=== PATIENT | male | born 1985 | race American Indian/Alaskan Native ===

== ENCOUNTER 2021-07-08 09:10 | Emergency (ER) | payer SELFPAY ==
[2021-07-08] MEDS ORDERED: ASPIRIN 325 MG TAB PO ONE (10:05)
--- NOTE | 2021-07-08 10:57 | XRay Report ---
CHEST 2 VIEWS INDICATION: Chest Pain. COMPARISON: None FINDINGS: Support devices: None. Heart: Within normal limits. Lungs/pleura: There is poor inspiration. No acute air space or interstitial disease. No pneumothorax . Additional findings: None. IMPRESSION: No acute findings. Signer Name: Dez Marcano Jr, MD Signed: 07/08/2021 10:48 AM Workstation Name: [id number]
[2021-07-08 12:38] LABS: Basophils # (Auto) 0.1 K/mm3 (0.0-0.1); Basophils % (Auto) 2.9 % (0.0-1.8); Eosinophils % (Auto) 0.3 % (0.0-4.3); Hematocrit 47.2 % (35.5-45.6); Lymphocytes # (Auto) 1.1 K/mm3 (1.2-5.4); Lymphocytes % (Auto) 26.9 % (13.4-35.0); Mean Corpuscular HGB Conc 34 % (32-34); Mean Corpuscular Volume 85 fl (84-94); Monocytes # (Auto) 0.4 K/mm3 (0.0-0.8); Monocytes % (Auto) 10.5 % (0.0-7.3); Platelet Count 169 K/mm3 (140-440); Red Blood Count 5.56 M/mm3 (3.65-5.03)
[2021-07-08 12:50] LABS: Alanine Aminotransferase 128 units/L (7-56); Albumin 4.2 g/dL (3.9-5); BUN/Creatinine Ratio 9; Blood Urea Nitrogen 10 mg/dL (9-20); Calcium 9.6 mg/dL (8.4-10.2); Hemolysis Index 8
--- NOTE | 2021-07-08 13:42 | Emergency Department Report ---
ED Chest Pain [facility] - General Chief Complaint: Chest Pain Stated Complaint: SOB Time Seen by Provider: 07/08/21 12:56 Source: patient Mode of arrival: Ambulatory Limitations: No Limitations - History of Present Illness Initial Comments: 36 year old male presents to ED with complaints of Chest pain, SOB, cough and +COVID 19. Patient states that for the past 4 days he has been having right- sided chest pain which he described as a heaviness in the chest and has been constant for the past 2 days with associated shortness of breath, productive cough and wheezing. Patient states that he did vomit once 3 days ago but has not had any more nausea or vomiting since. He denies any diarrhea. He denies any abdominal pain. He states that has been feeling generally weak. He denies any LE swelling or calf pain. He states that he did found out he was Covid positive yesterday. He did not have a COVID-19 vaccine. He denies any significant past medical history. He denies any tobacco use or illicit drug use. MD Complaint: chest pain, other (SOB, cough) -: Gradual, days(s) (4) - Related Data Previous Rx's Medication Instructions Recorded Last Taken Type Azithromycin [Zithromax Z-KIERA] 250 mg PO DAILY #1 pack 07/08/21 Unknown Rx Ibuprofen [Motrin] 800 mg PO Q8HR PRN #30 tablet 07/08/21 Unknown Rx predniSONE [Deltasone] 50 mg PO QDAY #5 tab 07/08/21 Unknown Rx Allergies Allergy/AdvReac Type Severity Reaction Status Date / Time No Known Allergies Allergy Unverified 07/08/21 10:05 Heart Score - HEART Score History: Slightly suspicious EKG: Normal Age: < 45 Risk factors: 1-2 risk factors Troponin: < normal limit HEART Score: 1 - EKG Read Time Time EKG Completed: 10:15 EKG Read Time: 10:15 ED Review of Systems ROS: Stated complaint: SOB Other details as noted in HPI ED Past Medical Hx - Medications Home Medications: Home Medications Medication Instructions Recorded Confirmed Last Taken Type Azithromycin [Zithromax Z-KIERA] 250 mg PO DAILY #1 pack 07/08/21 Unknown Rx Ibuprofen [Motrin] 800 mg PO Q8HR PRN #30 tablet 07/08/21 Unknown Rx predniSONE [Deltasone] 50 mg PO QDAY #5 tab 07/08/21 Unknown Rx ED Physical Exam - General Limitations: No Limitations General appearance: alert, in no apparent distress, other (mildly ill appearing ) - Head Head exam: Present: atraumatic, normocephalic, normal inspection - Eye Eye exam: Present: normal appearance, PERRL, EOMI Pupils: Present: normal accommodation - Neck Neck exam: Present: normal inspection, full ROM. Absent: meningismus - Respiratory Respiratory exam: Present: normal lung sounds bilaterally. Absent: respiratory distress, wheezes, rales, rhonchi - Cardiovascular Cardiovascular Exam: Present: regular rate, normal rhythm, normal heart sounds - GI/Abdominal GI/Abdominal exam: Present: soft. Absent: distended, tenderness, guarding, rebound - Extremities Exam Extremities exam: Present: normal inspection, full ROM, normal capillary refill. Absent: pedal edema, calf tenderness - Neurological Exam Neurological exam: Present: alert, oriented X3, CN II-XII intact, normal gait - Psychiatric Psychiatric exam: Present: normal affect, normal mood ED Course Vital Signs 07/08/21 07/08/21 10:20 16:05 Temperature 99.1 F 99.7 F H Pulse Rate 101 H 102 H Respiratory 20 Rate Blood Pressure 138/104 133/95 O2 Sat by Pulse 96 97 Oximetry ED Medical Decision Making - Lab Data Result diagrams: 07/08/21 12:14 07/08/21 12:14 - EKG Data EKG shows normal: sinus rhythm Rate: normal No standard instances P Waves: LAE - Radiology Data Radiology results: report reviewed Patient: DALE LAWRENCE MR#: [id number] [birth year] : 1985 Acct:[id number] Age/Sex: 36 / M ADM Date: 07/08/21 Loc: ED Attending Dr: Ordering Physician: ED MD GREYSON Date of Service: 07/08/21 Procedure(s): XR chest routine 2V Accession Number(s): [id number] cc: ED MD GREYSON Fluoro Time In Minutes: CHEST 2 VIEWS INDICATION: Chest Pain. COMPARISON: None FINDINGS: Support devices: None. Heart: Within normal limits. Lungs/pleura: There is poor inspiration. No acute air space or interstitial disease. No pneumothorax. Additional findings: None. IMPRESSION: No acute findings. Signer Name: Dez Marcano Jr, MD Signed: 07/08/2021 10:48 AM Workstation Name: [id number] Transcribed By: ELVIRA Dictated By: DEZ MARCANO JR, MD Electronically Authenticated By: EDZ MARCANO JR, MD Signed Date/Time: 07/08/21 1048 DD/ 1048 TD/TT: Patient: DALE LAWRENCE MR#: [id number] [birth year] : 1985 Acct:[id number] Age/Sex: 36 / M ADM Date: 07/08/21 Loc: ED Attending Dr: Ordering Physician: ARMEN WEATHERS Date of Service: 07/08/21 Procedure(s): CT angio chest Accession Number(s): [id number] cc: ARMEN WEATHERS CTA CHEST WITH CONTRAST INDICATION / CLINICAL INFORMATION: SHORTNESS OF BREATH/CP OMNI 350 100 ML. TECHNIQUE: Axial CT images were obtained through the chest after injection of IV contrast. 3 plane MIP and/or 3D reconstructions were produced. All CT scans at this location are performed using CT dose reduction for ALARA by means of automated exposure control. COMPARISON: Same day chest radiograph FINDINGS: PULMONARY ARTERIES: No central or segmental pulmonary embolus. THORACIC AORTA: No significant abnormality. HEART: No significant abnormality. ADENOPATHY: No significant adenopathy. LUNGS/PLEURA: Multifocal patchy groundglass and reticulonodular opacities are present throughout the lungs. Calcified granuloma in the right lung. No pleural effusion or pneumothorax. ADDITIONAL FINDINGS: None. UPPER ABDOMEN: Hepatic steatosis. No acute findings. SKELETAL STRUCTURES: No significant osseous abnormality. IMPRESSION: 1. No evidence for pulmonary embolism. 2. Multifocal patchy airspace opacities throughout the lungs, compatible with atypical pneumonia. Signer Name: Candie Headley MD Signed: 07/08/2021 3:04 PM Workstation Name: [id number] Transcribed By: MARVIN Dictated By: CANDIE HEADLEY MD Electronically Authenticated By: CANDIE HEADLEY MD Signed Date/Time: 07/08/21 1504 DD/ 1459 TD/TT: - Medical Decision Making All labs reviewed -- CBC and CMP unremarkable. Trop neg. CXR showed nothing acute. Pt was ambulated in ED by me, and his O2 maintained at 95%-97% on RA but his HR was 110-115s and he complained of feeling generally weak and SOB while ambulating. Discussed case with Dr Rand, she agree with doing a CTA to rule out PE. 1548: CTA of chest shows IMPRESSION: No evidence for pulmonary embolism. Multifocal patchy airspace opacities throughout the lungs, compatible with atypical pneumonia. Patient currently sitting in recliner, on his phone and currently is not in any significant distress. His repeat vital signs are stable. This patient is not hypoxic,and not toxic appearing, he will be discharged home with zithromax and prednisone. Discussed the CT results with patient. Discussed treatment plan with patient. He was encouraged to purchase a pulse oximeter and to monitor his oxygen at home. He was informed if his oxygen starts to drop below 92 consistently and his symptoms worsens that he needs to return immediately to the ER. Patient expressed understanding of all instructions and agree with plan. Patient was stable at time of discharge. Critical care attestation.: If time is entered above; I have spent that time in minutes in the direct care of this critically ill patient, excluding procedure time. ED Disposition Clinical Impression: Pneumonia due to COVID-19 virus Disposition: HOME / SELF CARE / HOMELESS Is pt being admited?: No Does the pt Need Aspirin: No Condition: Stable Instructions: COVID-19: How to Protect Yourself and Others - CDC, Pneumonitis, Prevent the Spread of COVID-19 if You Are Sick - CDC, Bacterial Pneumonia (ED) Additional Instructions: Take the Zithromax as prescribed. Take the prednisone as prescribed. You can take Mucinex or Robitussin from [id number] to help with any coughing. Take the ibuprofen as prescribed to help with any pain. It is important that you purchase a pulse oximeter and monitor your oxygen saturation as discussed. Also it is important to get a thermometer to monitor your temperatures and if you do have a fever you can take the ibuprofen which you can also alternate with Tylenol every 4 hours. Continue to quarantine for the next 10 to 14 days. Drink lots of fluids, get rest, take a multivitamin that has vitamin C, zinc and vitamin D. Follow-up closely with your PCP but if at any point your symptoms worsens return immediately to the ER. Prescriptions: predniSONE [Deltasone] 50 mg PO QDAY #5 tab Ibuprofen [Motrin] 800 mg PO Q8HR PRN #30 tablet PRN Reason: pain Azithromycin [Zithromax Z-KIERA] 250 mg PO DAILY #1 pack Referrals: [facility] [Provider Group] - 3-5 Days Time of Disposition: 16:01
--- NOTE | 2021-07-08 15:08 | Cat Scan Report ---
CTA CHEST WITH CONTRAST INDICATION / CLINICAL INFORMATION: SHORTNESS OF BREATH/CP OMNI 350 100 ML. TECHNIQUE: Axial CT images were obtained through the chest after injection of IV contrast. 3 plane NH P and/or 3D reconstructions were produced. All CT scans at this location are performed using CT dose reduction for ALARA by means of automated exposure control. COMPARISON: Same day chest radiograph FINDINGS: PULMONARY ARTERIES: No central or segmental pulmonary embolus. THORACIC AORTA: No significant abnormality. HEART: No significant abnormality. ADENOPATHY: No significant adenopathy. LUNGS/PLEURA: Multifocal patchy groundglass and reticulonodular opacities are present throughout the lungs. Calcified granuloma in the right lung. No pleural effusion or pneumothorax. ADDITIONAL FINDINGS: None. UPPER ABDOMEN: Hepatic steatosis. No acute findings. SKELETAL STRUCTURES: No significant osseous abnormality. IMPRESSION: 1. No evidence for pulmonary embolism. 2. Multifocal patchy airspace opacities throughout the lungs, compatible with atypical pneumonia. Signer Name: Carmelo Headley MD Signed: 07/08/2021 3:04 PM Workstation Name: [id number]
[2021-07-08 16:07] VITALS: BP 133/95
== END 2021-07-08 16:08 | disposition home or self-care (01) ==
LOC: ED 09:10
DX: U07.1 COVID-19 (principal); J12.82 Pneumonia due to coronavirus disease 2019; Z79.899 Other long term (current) drug therapy
CPT/HCPCS: 36415; 71046; 71275; 80053; 84484; 85025; 93005; 99284; Q9967